=== PATIENT | male | born 1955 | race Hispanic/Latino ===

== ENCOUNTER 2017-07-02 14:30 | Emergency (ER) | payer OTHER ==
[~2017-07-02] VITALS: Ht 167.6 cm; Wt 68.0 kg
[~2017-07-02 14:30] MED LIST: ARICEPT10 M1 PO; DOCUSATE SODIU100 M3 PO; PERCOCET 5-3251 EACH PO; SEROQUEL
--- NOTE | 2017-07-02 14:44 | ED GENERAL ADULT ---
History of Present Illness General Chief Complaint: General Adult Stated Complaint: PER DAUGHTER PT TOOK ALL HIS SEROQUEL Source: patient Exam Limitations: no limitations Vital Signs & Intake/Output Vital Signs & Intake/Output Vital Signs Date Time Temp Pulse Resp B/P B/P Pulse O2 O2 Flow FiO2 Mean Ox Delivery Rate 07/02 1611 96.5 84 16 120/80 100 Room Air 07/02 1434 96.3 93 15 122/79 97 Room Air Room Air Allergies Coded Allergies: No Known Allergies (07/02/17) Reconcile Medications Donepezil HCl (Aricept) 10 MG TABLET 1 TAB PO DAILY ALZHEIMER'S DEMENTIA ( Reported) Quetiapine Fumarate 25 MG TABLET 1 TAB PO QPM MENTAL HEALTH (Reported) Quetiapine Fumarate (Seroquel) 25 MG TABLET 1 TAB PO QPM PRN AGITATION Triage Note: PT TO ED FOR C/C OF POSSIBLE OVERDOSE ON SEROQUEL. PT HAS DEMENTIA AND PER DAUGHTER, THERE WERE OVER 20 PILLS IN BOTTLE AND TODAY THE DAUGHTER FOUND THE BOTTLE EMPTY. PT APPEARS SLIGHTLY DROWSY, BUT ABLE TO ANSWER SOME QUESTIONS. PER DAUGHTER, HE WAS ALSO FOUND WITH BOTTLE OF TYLENOL BUT DAUGHTER DOESN'T THINK PT TOOK THOSE PILLS. PER DAUGHTER, PT TOOK PILLS EITHER LAST NIGHT OR THIS MORNING. Triage Nurses Notes Reviewed? yes Onset: Abrupt Duration: ? SOMETIME LAST NIGHT UNTIL 11 TODAY Severity: mild No Modifying Factors: none Associated Symptoms: ATAXIA, SOME SLURRED SPEECH HPI: This is a 61-year-old male who presents to the ER with his daughter for chief complaint of probable overdose on Seroquel and questionable overdose on Tylenol. He has a history of dementia and is on Aricept, 25 mg of Seroquel at night. Today the daughter who takes care of him came home from work after her police shift commander. She was calling him to the lunch table at 12 noon and noticed he was unsteady on his feet. She asked her son to obtain the medications from her room to give to him and when they couldn't find it they found that the pain and taking the bottle that of the daughter's room into his room. The Aricept bottles on touch but the cervical bladder was empty. There are 25 mg tablets and she thinks it was approximately 20 tablets left. He also had a bottle of her Tylenol and she is unsure how any tablets he took. It is unclear whether he took the medications last night or this morning. 12 noon is the first time she saw him today. Patient is awake alert, slight slurred speech. He was slightly ataxic at home. No axis to alcohol although he is a former EtOH abuser as well as former substance abuser. There is no indication he took these medications on purpose. Past History Travel History Traveled to [place] past 21 day No Medical History Any Pertinent Medical History? see below for history Neurological: Alzheimer's disease EENT: NONE Cardiovascular: NONE Respiratory: NONE Gastrointestinal: NONE Hepatic: NONE Renal: NONE Musculoskeletal: NONE Psychiatric: NONE Endocrine: NONE Blood Disorders: NONE Cancer(s): NONE FUNERAL PRE NEED CONSULTANT/Reproductive: NONE Surgical History Surgical History: colonoscopy done recentlyabout 4-6 months ago which was normal Psychosocial History Who do you live with Daughter What is your primary language Croatian Tobacco Use: Quit >30 days ago ETOH Use: denies use Illicit Drug Use: denies illicit drug use Family History Hx Contributory? No Review of Systems Review of Systems Constitutional: Reports: see HPI (PER DAUGHTER). EENTM: Reports: no symptoms. Respiratory: Denies: short of breath. Cardiovascular: Denies: chest pain. GI: Denies: abdominal pain. Genitourinary: Reports: no symptoms. Musculoskeletal: Reports: no symptoms. Skin: Reports: no symptoms. Neurological/Psychological: Reports: see HPI (SLURRED SPEECH), ataxia. Hematologic/Endocrine: Denies: bruising, bleeding. Immunologic/Allergic: Reports: no symptoms. All Other Systems: Reviewed and Negative Physical Exam Physical Exam General Appearance: well developed/nourished, alert, awake, mild distress Head: atraumatic, normal appearance Eyes: Bilateral: normal appearance, PERRL, EOMI. Ears, Nose, Throat: normal pharynx, normal ENT inspection, hearing grossly normal Neck: normal inspection, supple, full range of motion Respiratory: normal breath sounds, chest non-tender, no respiratory distress Cardiovascular: regular rate/rhythm Peripheral Pulses: 2+ radial (R), 2+ radial (L) Gastrointestinal: normal bowel sounds, soft, non-tender Back: normal inspection, normal range of motion Neurologic/Psych: no motor/sensory deficits, awake, alert, ORIENTED X 1 ( BASELINE), MILD ATAXIC GAIT Skin: intact, normal color, warm/dry Core Measures ACS in differential dx? No CVA/TIA Diagnosis: No Sepsis Present: No Sepsis Focused Exam Completed? No Progress Differential Diagnoses I considered the following diagnoses in my evaluation of the patient: [SEROQUEL OVERDOSE, TYLENOL OVERDOSE, MEDICATION CONFUSION, MEDICATION ERROR] Plan of Care: Orders Procedure Date/time Status Regular Diet 07/03 B Active EKG 07/02 1742 Active Add-on Test (ER Only) 07/02 1607 Active PROTHROMBIN TIME 07/02 1540 Complete EKG 07/02 1533 Active Telemetry/Digital Print Operator 07/02 1453 Active URINE DRUGS OF ABUSE 07/02 1453 Active ACETOMINOPHEN 07/02 1453 Complete SALICYLATE 07/02 1453 Complete ETHANOL 07/02 1453 Complete COMPREHENSIVE METABOLIC PANEL 07/02 1453 Complete CBC WITHOUT DIFFERENTIAL 07/02 145 Complete TYPE & SCREEN (NOT X-MATCH) 07/02 145 Complete Laboratory Tests 07/02/17 1540: Anion Gap 11, Estimated GFR > 60, BUN/Creatinine Ratio 12.5, Glucose 116 H, Calcium 8.6, Total Bilirubin 0.3, AST 16 L, ALT 32, Alkaline Phosphatase 65, Total Protein 6.8, Albumin 4.0, Globulin 2.8, Albumin/Globulin Ratio 1.4, PT 12.1, INR 1.15, CBC w Diff NO MAN DIFF REQ, RBC 4.59 L, MCV 83.1, MCH 27.5, RDW 14.1, MPV 8.0, Gran % 62.1, Lymphocytes % 29.4, Monocytes % 4.8, Eosinophils % 2.8, Basophils % 0.9, Absolute Granulocytes 3.1, Absolute Lymphocytes 1.5, Absolute Monocytes 0.2, Absolute Eosinophils 0.1, Absolute Basophils 0, PUBS MCHC 33.0, Salicylates < 1.0, Acetaminophen < 10.0 L, Serum Alcohol < 10.0 4:07 PM D/W POISON CONTROL. RECOMMEND LABS, ASPIRIN TYLENOL LEVEL, REPEAT EKG AND TO CHECK COAGULATION STUDIES. NO INDICATION FOR 4 HR PATIENT MAY HAVE TAKEN MEDS LAST NIGHT. COAGS ORDERED. PATIETN IS COMFORTABLE, WATCHING TV. DAUGHTER IS BY HIS BEDSIDE. REPEAT EKG QTC INTERVAL NORMAL. DAUGHTER ANXIOUS TO TAKE HIM HOME HE IS STARTING TO AND BECOME MORE AGITATED. ALL MEDS ARE LOCKED AT THIS TIME AND HE WILL NOT BE LEFT ALONE. NO INDICATION THIS WAS AN INTENTIONAL EVENT. Initial ED EKG: normal intervals, NSR Repeat EKG: unchanged (QTC 424) Departure Departure Disposition: HOME OR SELF CARE Condition: Stable Clinical Impression Primary Impression: Overdose Referrals: Sharri Maurice MD (PCP/Family) Additional Instructions: MAKE SURE ALL THE MEDICATIONS AT HOME ARE IN A LOCK BOX FOLLOW UP WITH THE PRIMARY CARE DOCTOR RETURN IMMEDIATELY TO THE ER FOR ANY CHANGING OR WORSENING SYMPTOMS Departure Forms: Customer Survey General Discharge Information Prescriptions: Current Visit Scripts Quetiapine Fumarate (Seroquel) 1 TAB PO QPM PRN AGITATION #30 TAB Critical Care Note Critical Care Note Critical Care Time: non-applicable
[2017-07-02] MEDS ORDERED: QUETIAPINE FUMA25 M1 PO (15:52)
[2017-07-02 15:56] LABS: ABSOLUTE BASOPHIL COUNT 0 /CUMM (0.0-0.2); ABSOLUTE EOSINOPHIL COUNT 0.1 /CUMM (0.0-0.7); ABSOLUTE GRANULOCYTE CT 3.1 /CUMM (1.4-6.5); ABSOLUTE LYMPH COUNT 1.5 /CUMM (1.2-3.4); ABSOLUTE MONOCYTE COUNT 0.2 /CUMM (0.10-0.60); BASOPHIL % 0.9 % (0.0-2.0); EOSINOPHIL % 2.8 % (0-5); GRANULOCYTE % 62.1 % (42.2-75.2); HEMATOCRIT 38.1 % (42-52); MEAN CORPUSCULAR HGB 27.5 PG (27.0-31.0); MEAN CORPUSCULAR VOLUME 83.1 FL (80.0-94.0); PLATELET COUNT 192 /CUMM (130-400); RBC DISTRIBUTION WIDTH 14.1 % (11.5-14.5); RED BLOOD CELL CT 4.59 /CUMM (4.70-6.10); WHITE BLOOD CELL COUNT 5.1 /CUMM (4.8-10.8)
[2017-07-02 16:11] VITALS: BP 120/80
[2017-07-02 16:42] LABS: PT 12.1 SEC (9.4-12.5)
[2017-07-02] MEDS ORDERED: SEROQUEL25 M1 PO (18:28)
== END 2017-07-02 18:42 ==
LOC: ERH 14:30
PROVIDERS: Emergency Medicine
DX: T43.594A Poisoning by other antipsychotics and neuroleptics, undetermined, initial encounter (principal); G30.9 Alzheimer's disease, unspecified; R47.81 Slurred speech
CPT/HCPCS: 80307; 93005; 93010; 96360; 96361; G0480

== ENCOUNTER 2017-12-04 01:14 | Inpatient (IN) | payer OTHER ==
[~2017-12-04] VITALS: Ht 165.1 cm; Wt 65.5 kg
[~2017-12-04 01:14] MED LIST changes: +QUETIAPINE FUMA25 M1 PO; +SEROQUEL25 M1 PO
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
[2017-12-04 03:23] LABS: ABSOLUTE BASOPHIL COUNT 0.1 /CUMM (0.0-0.2); ABSOLUTE EOSINOPHIL COUNT 0 /CUMM (0.0-0.7); ABSOLUTE GRANULOCYTE CT 12.1 /CUMM (1.4-6.5); ABSOLUTE LYMPH COUNT 0.9 /CUMM (1.2-3.4); ABSOLUTE MONOCYTE COUNT 0.8 /CUMM (0.10-0.60); BASOPHIL % 0.5 % (0.0-2.0); EOSINOPHIL % 0 % (0-5); GRANULOCYTE % 86.9 % (42.2-75.2); HEMATOCRIT 39.3 % (42-52); MEAN CORPUSCULAR HGB 29.7 PG (27.0-31.0); MEAN CORPUSCULAR HGB CONC 34.3 G/DL (33.0-37.0); MEAN CORPUSCULAR VOLUME 86.5 FL (80.0-94.0); MEAN PLATELET VOLUME 8.4 FL (7.4-10.4); PLATELET COUNT 127 /CUMM (130-400); RBC DISTRIBUTION WIDTH 14.2 % (11.5-14.5); RED BLOOD CELL CT 4.55 /CUMM (4.70-6.10)
--- NOTE | 2017-12-04 06:18 | RADIOLOGY REPORT ---
EXAMINATION: CHEST 1 VIEW CLINICAL INFORMATION: Dyspnea. Leukocytosis. COMPARISON: None. TECHNIQUE: An AP view of the chest is provided. FINDINGS: The cardiac silhouette is not enlarged. The mediastinal and hilar contours are unremarkable. There are neither pleural effusions nor pneumothoraces. There is retrocardiac airspace disease as well as a medial segment right middle lobe infiltrate. The osseous structures are unremarkable. IMPRESSION: Medial segment right middle lobe infiltrate concerning for pneumonia in the appropriate clinical setting. Recommendation is for a followup chest series to be obtained following treatment and/or resolution of symptoms to assure resolution of this appearance.
--- NOTE | 2017-12-04 06:21 | CT SCAN REPORT ---
EXAMINATION: CT ABDOMEN AND PELVIS WITHOUT CONTRAST CLINICAL INFORMATION: Diarrhea. Dyspnea. COMPARISON: None. TECHNIQUE: Contiguous axial thin section helical images of the abdomen and pelvis were performed without oral or IV contrast. The data set was reformatted in the coronal and sagittal planes and reviewed on an independent workstation. DLP: 265 mGy-cm. FINDINGS: There is a medial segment right middle lobe consolidation. There is patchy lingular retrocardiac and right lower lobe airspace disease. The visualized portions of the heart are unremarkable. The liver is of normal size and attenuation without focal lesions nor intrahepatic biliary ductal dilation. A normal gallbladder is identified. There is no wall thickening or discernible pericholecystic fluid. The spleen, pancreas, adrenal glands are unremarkable. Both kidneys are of normal size and attenuation without hydronephrosis. There is a 2 mm nonobstructive calculus within the lower pole of the right kidney. There is an approximately 3.4 cm cyst within the lower pole of the left kidney There is no abdominal free fluid. There is neither mesenteric nor retroperitoneal lymphadenopathy. Normal unopacified loops of small and large bowel are identified. There is no pelvic free fluid. The urinary bladder is unremarkable. There is neither pelvic nor inguinal lymphadenopathy. Bone windows: Neither sclerotic nor lytic bone lesions are identified. There is mild disc height loss at L4/L5 and L5/S1. IMPRESSION: Medial segment right middle lobe pneumonia. Patchy multifocal airspace disease. Recommendation is for a followup chest series to be obtained following treatment and/or resolution of symptoms to assure resolution of this appearance. No evidence for acute abdominal or pelvic inflammatory or infectious processes. Punctate nonobstructive right lower pole renal calculus.
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
[2017-12-04 14:00] VITALS: BP 120/60
[2017-12-04 22:32] VITALS: BP 124/66
[2017-12-05 07:10] VITALS: BP 120/72
--- NOTE | 2017-12-05 07:28 | PN- Housestaff ---
See Addendum Subjective Follow-up For: CAP Tele-Events Since Last Visit: not on monitor Subjective: Seen and examined. Confused. Does not know why we are giving him IV antibiotics. Patient was explained that he has underlying pneumonia and is being treated for that. He has baseline dementia. T-max 102.2 Review of Systems Constitutional: Reports: see HPI. Objective Last 24 Hrs of Vital Signs/I&O Vital Signs Date Time Temp Pulse Resp B/P B/P Pulse O2 O2 Flow FiO2 Mean Ox Delivery Rate 12/05 0710 100.4 105 26 120/72 94 Room Air 12/04 2248 Room Air 12/04 2232 99.6 106 24 124/66 95 12/04 1856 98.7 12/04 1600 Room Air 12/04 1528 102.2 12/04 1400 102.2 100 20 120/60 95 12/04 0940 99.0 103 16 109/69 Intake & Output 12/05 1600 12/05 0800 12/05 0000 Intake Total 960 840 Output Total Balance 960 840 Intake, IV 600 600 Intake, Oral 360 240 Number 1 Bowel Movements Patient 143 lb Weight Physical Exam General Appearance: Cooperative Cardiovascular: Normal S1, Normal S2 Lungs: decreased airflow crackels R side Abdomen: Soft, No Tenderness Current Medications: Current Medications Sig/Edwin Start time Last Medication Dose Route Stop Time Status Admin Acetaminophen 1,000 MG Q6P PRN 12/04 0900 AC 12/04 IV 1528 Azithromycin 500 MG DAILY 12/05 0900 AC Sodium Chloride 250 ML IV Ceftriaxone Sodium 1,000 MG DAILY 12/05 0900 AC IV Dextrose/Sodium 1,000 ML Q13H 12/04 0915 AC 12/05 Chloride IV 12/05 1114 0152 Donepezil HCl 10 MG AT BEDTIME 12/05 2100 AC PO Heparin Sodium 5,000 UNIT Q8 12/04 1400 AC 12/05 (Porcine) SC 0511 Ketorolac 0 .STK-MED ONE 12/04 0952 DC Tromethamine .ROUTE Quetiapine Fumarate 25 MG QPM 12/04 2100 AC 12/04 PO 2043 Last 24 Hrs of Lab/Cas Results Last 24 Hrs of Labs/Mics: Laboratory Tests 12/05/17614: Anion Gap 12, Estimated GFR > 60, BUN/Creatinine Ratio 10.0, Magnesium 1.7, CBC w Diff Pending, WBC Pending, RBC Pending, Hgb Pending, Hct Pending, MCV Pending, MCH Pending, MCHC Pending, RDW Pending, Plt Count Pending, MPV Pending, Gran % Pending, Lymphocytes % Pending, Monocytes % Pending, Eosinophils % Pending, Basophils % Pending, Absolute Granulocytes Pending, Absolute Lymphocytes Pending , Absolute Monocytes Pending, Absolute Eosinophils Pending, Absolute Basophils Pending Microbiology 12/04 906 LOWER RESP: Respiratory Culture - COLB 12/04 906 LOWER RESP: Gram Stain - COLB Assessment/Plan Assessment: 62-year-old man with past medical history of Alzheimer's dementia brought in by his daughter for evaluation of increasing confusion with unsteady gait, agitation, and increased urination/diarrhea. Vital signs are significant for a heart rate ranging 109-111. Physical exam is significant for an elderly confused man smelling of stool with crackles up to his right mid chest. Lab studies significant for WBC of 14.0 with left shift, K3.6 CT abdomen/pelvis without IV contrast demonstrated no acute intra-abdominal pathology but did comment on a right middle lobe pneumonia with patchy multifocal airspace disease. Chest x-ray demonstrated similar findings. EKG revealed sinus tachycardia. He is currently being treated and evaluated for following conditions #Community-acquired pneumonia(RML) Clinically patient appears to have a community-acquired pneumonia. His worsening altered mental status may be due to a toxic metabolic encephalopathy in the context of infection and known dementia -Monitor fever and WBC curve -Urine strep and Legionella antigens negative -Follow-up blood/urine/stool cultures and sensitivities -Sputum culture pending recipt -Continue ceftriaxone and azithromycin day 2 -O2 supplementation to maintain oxygen saturation above 92 #Diarrhea 2 bowel movements overnight, C. difficile negative, CT scan negative for any acute intra-abdominal pathology -Stool culture #History of Alzheimer's dementia -Continue Aricept/Seroquel -Fall precautions -Patient safety monitor Heart healthy diet/DVT prophylaxis with subcutaneous heparin/Full code -Patient has bed at [facility] where he will ultimately be discharged to Problem List: 1. Diarrhea 2. Pneumonia Pain Ratin Pain Location: na Pain Goal: Pain 4 or less Pain Plan: prn Tomorrow's Labs & Rationales: cbc
[2017-12-05 07:47] LABS: ABSOLUTE BASOPHIL COUNT 0 /CUMM (0.0-0.2); ABSOLUTE EOSINOPHIL COUNT 0 /CUMM (0.0-0.7); ABSOLUTE GRANULOCYTE CT 9.7 /CUMM (1.4-6.5); ABSOLUTE LYMPH COUNT 0.7 /CUMM (1.2-3.4); ABSOLUTE MONOCYTE COUNT 0.7 /CUMM (0.10-0.60); BASOPHIL % 0.1 % (0.0-2.0); EOSINOPHIL % 0.1 % (0-5); HEMATOCRIT 37.1 % (42-52); MEAN CORPUSCULAR HGB 29.5 PG (27.0-31.0); MEAN CORPUSCULAR HGB CONC 33.3 G/DL (33.0-37.0); MEAN CORPUSCULAR VOLUME 88.5 FL (80.0-94.0); MEAN PLATELET VOLUME 9.5 FL (7.4-10.4); PLATELET COUNT 112 /CUMM (130-400); RBC DISTRIBUTION WIDTH 14.1 % (11.5-14.5); RED BLOOD CELL CT 4.19 /CUMM (4.70-6.10); WHITE BLOOD CELL COUNT 11.1 /CUMM (4.8-10.8)
[2017-12-05 09:22] LABS: GRANULOCYTE % 87.2 % (42.2-75.2)
[2017-12-05 14:24] VITALS: BP 112/70
[2017-12-05 22:03] VITALS: BP 140/80
[2017-12-06 05:45] LABS: C.DIFFICILE TOXIN B QL PCR NOT DETECTED (NOT DETECTED)
[2017-12-06 06:48] VITALS: BP 140/80
--- NOTE | 2017-12-06 07:25 | PN- Housestaff ---
Karlos WADSWORTH,Joanna 12/06/17 0725: Subjective Follow-up For: CAP Subjective: Tmax 101 Review of Systems Constitutional: Reports: see HPI. Objective Last 24 Hrs of Vital Signs/I&O Vital Signs Date Time Temp Pulse Resp B/P B/P Pulse O2 O2 Flow FiO2 Mean Ox Delivery Rate 12/06 0755 99.6 12/06 0648 101.1 109 18 140/80 95 Room Air 12/06 0000 Room Air 12/05 2203 99.2 109 20 140/80 95 12/05 1618 Room Air Room Air 12/05 1600 Room Air 12/05 1424 99.0 90 18 112/70 95 Room Air 12/05 0933 99.1 12/05 0834 100.4 Intake & Output 12/06 1600 12/06 0800 12/06 0000 Intake Total 200 550 Output Total Balance 200 550 Intake, Oral 200 550 Number 2 Bowel Movements Patient 144 lb Weight Physical Exam General Appearance: No Acute Distress Cardiovascular: Normal S1, Normal S2 Lungs: Normal Air Movement, mid chest crackels Abdomen: Normal Bowel Sounds, Soft, No Tenderness Neurological: Normal Speech Extremities: No Edema Current Medications: Current Medications Sig/Edwin Start time Last Medication Dose Route Stop Time Status Admin Acetaminophen 1,000 MG Q6P PRN 12/04 0900 AC 12/05 IV 0834 Azithromycin 500 MG DAILY 12/05 0900 AC 12/05 Sodium Chloride 250 ML IV 0834 Ceftriaxone Sodium 1,000 MG DAILY 12/05 0900 AC 12/05 IV 0834 Dextrose/Sodium 1,000 ML Q13H 12/04 0915 DC 12/05 Chloride IV 12/05 1114 0152 Donepezil HCl 10 MG AT BEDTIME 12/05 2100 AC 12/05 PO 211 Heparin Sodium 5,000 UNIT Q8 12/04 1400 AC 12/06 (Porcine) SC 0642 Melatonin 5 MG ONCE ONE 12/06 0215 DC 12/06 PO 12/06 0216 0219 Potassium Chloride 40 MEQ ONCE ONE 12/06 0815 AC PO 12/06 0816 Quetiapine Fumarate 25 MG QPM 12/04 2100 AC 12/05 PO 211 Last 24 Hrs of Lab/Cas Results Last 24 Hrs of Labs/Mics: Laboratory Tests 12/06/17 0644: CBC w Diff Pending, WBC Pending, RBC Pending, Hgb Pending, Hct Pending, MCV Pending, MCH Pending, MCHC Pending, RDW Pending, Plt Count Pending, MPV Pending, Gran % Pending, Lymphocytes % Pending, Monocytes % Pending, Eosinophils % Pending, Basophils % Pending, Absolute Granulocytes Pending, Absolute Lymphocytes Pending, Absolute Monocytes Pending, Absolute Eosinophils Pending, Absolute Basophils Pending Assessment/Plan Assessment: 62-year-old man with past medical history of Alzheimer's dementia brought in by his daughter for evaluation of increasing confusion with unsteady gait, agitation, and increased urination/diarrhea. He is currently being treated and evaluated for following conditions #Community-acquired pneumonia(RML) Clinically patient appears to have a community-acquired pneumonia. His worsening altered mental status may be due to a toxic metabolic encephalopathy in the context of infection and known dementia -Monitor fever and WBC curve -Urine strep and Legionella antigens negative -Follow-up blood/urine/stool cultures and sensitivities -Sputum culture pending -Continue ceftriaxone and azithromycin day 3 -We will obtain a CAT scan to evaluate for possible empyema/ complication of pneumonia in setting of fevers despite antibiotics #Diarrhea C. difficile negative, CT scan negative for any acute intra-abdominal pathology -Stool culture pending -C. difficile PCR is negative -No bowel movements overnight #History of Alzheimer's dementia -Continue Aricept/Seroquel -Fall precautions -Patient safety monitor Heart healthy diet/DVT prophylaxis with subcutaneous heparin/Full code -Patient has bed at [facility] where he will ultimately be discharged to [facility] for Problem List: 1. Diarrhea 2. Pneumonia 3. Dementia Pain Ratin Pain Location: na Pain Goal: Pain 4 or less Pain Plan: prn Tomorrow's Labs & Rationales: Keiko Belcher MD 12/06/17 0949: Attending MD Review Statement Attending Statement Attending MD Statement: examined this patient, discuss w/resident/PA/FLOOR COVERING LAYER, agreed w/resident/PA/FLOOR COVERING LAYER, reviewed EMR data (avail), discussed with nursing, discussed with case mgmt, reviewed images Attending Assessment/Plan: 62-year-old Jamaican-speaking male with dementia who is here with pneumonia. We have him on IV ceftriaxone and azithromycin however he continues to be febrile to 101. He had some diarrhea prompting a diagnostic evaluation for C. difficile however his stool C. difficile toxin and PCR have been negative. Given the persistent temperature he's getting a CT chest today to rule out any complications of pneumonia. Will follow-up as per CT chest.
[2017-12-06 07:53] LABS: ABSOLUTE BASOPHIL COUNT 0 /CUMM (0.0-0.2); ABSOLUTE EOSINOPHIL COUNT 0.1 /CUMM (0.0-0.7); ABSOLUTE GRANULOCYTE CT 7.9 /CUMM (1.4-6.5); ABSOLUTE LYMPH COUNT 0.9 /CUMM (1.2-3.4); ABSOLUTE MONOCYTE COUNT 0.7 /CUMM (0.10-0.60); BASOPHIL % 0.3 % (0.0-2.0); EOSINOPHIL % 0.8 % (0-5); GRANULOCYTE % 82.8 % (42.2-75.2); HEMATOCRIT 35.5 % (42-52); MEAN CORPUSCULAR HGB 29.4 PG (27.0-31.0); MEAN CORPUSCULAR HGB CONC 33.7 G/DL (33.0-37.0); MEAN CORPUSCULAR VOLUME 87.3 FL (80.0-94.0); RBC DISTRIBUTION WIDTH 14.2 % (11.5-14.5); RED BLOOD CELL CT 4.06 /CUMM (4.70-6.10); WHITE BLOOD CELL COUNT 9.6 /CUMM (4.8-10.8)
[2017-12-06 08:40] LABS: PLATELET COUNT 128 /CUMM (130-400)
[2017-12-06 14:44] VITALS: BP 128/104
--- NOTE | 2017-12-06 15:01 | CT SCAN REPORT ---
EXAMINATION: CT CHEST WITHOUT CONTRAST CLINICAL INFORMATION: Spiking fever despite antibiotics. Rule out empyema. CT scan of the abdomen and pelvis from 12/04/2017 had shown findings suspicious for right middle lobe pneumonia and patchy multifocal airspace disease. COMPARISON: CT scan of the abdomen and pelvis dated 12/04/2017. Limited PET CT scan dated 09/13/2011. TECHNIQUE: Multidetector volumetric CT imaging of the chest was obtained noncontrast. Sagittal and coronal reformations were obtained. DLP: 199.27 mGy-cm. FINDINGS: LUNGS: As seen on the recent CT scan of the abdomen, there is dense consolidation seen centrally within the right middle lobe, involving medial and lateral segments, with associated air bronchograms. There are also significant associated patchy groundglass opacities and small nodularity seen extending throughout the right middle lobe as well as involving portions of the right lower lobe and the central aspects of the lingula and left lower lobe. There is a small partially loculated pleural fluid in the right lung base posteriorly without associated pleural thickening appreciated on this noncontrast exam. Findings are most consistent with a multifocal pneumonia. No centrally obstructing mass is appreciated. LYMPHOVASCULAR STRUCTURES: Aortic and heart size normal. There is a small amount of fluid in the superior pericardial recess and a small amount of pericardial fluid, consistent with physiologic findings. There are multiple subcentimeter sized mediastinal lymph nodes seen. No definite hilar or axillary adenopathy. THYROID GLAND: Unremarkable to the extent included. UPPER ABDOMEN: Included portions of the solid organs in the upper abdomen within normal limits. BONES: There is an S-shaped thoracolumbar scoliosis with multilevel mild vertebral spondylosis in the mid and lower thoracic spine. No suspicious focal findings. IMPRESSION: 1. Multifocal lung parenchymal opacities are seen, involving the mid and lower lungs bilaterally with most extensive consolidation seen centrally within the right middle lobe. Associated small simple appearing pleural fluid is seen in the right lower lobe. Findings are suspicious for a multifocal pneumonia. Close clinical correlation is requested. Follow-up CT scan status post treatment is recommended for reassessment. 2. Multiple small mediastinal lymph nodes, all measuring just under 1 cm in size. Findings are likely reactive to the above-described pneumonia.
--- NOTE | 2017-12-06 17:48 | Cons- Infect Disease ---
General Information and HPI Consulting Request Date of Consult: 12/06/17 Requested By: Michael Archuleta MD Reason for Consult: Pneumonia Exam Limitations: dementia History of Present Illness: This is a 62-year-old man with Alzheimer's dementia and a history of remote alcohol and drug abuse admitted on December 04 with a 2 week history of increased confusion over his usual, unsteady gait, decreased p.o. intake, diarrhea and urinary incontinence. On admission he was afebrile. Laboratory data revealed a white blood cell count 14,000, platelets 127,000, BUN/creatinine 17 and 0.9, with normal liver enzymes, urinalysis 3-5 RBC/1-3 WBCs. Chest x-ray revealed a medial segment right middle lobe infiltrate and retrocardiac airspace disease. He was begun on Ceftriaxone and Azithromycin and admitted to the floor. Later in the day he spiked to 102.2 and he he was again febrile, though lower grade, today. He is unable to provide any history secondary to his dementia. 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 Home Smoking Status: Former Smoker ETOH Use: alcoholic Illicit Drug Use: hx of drug abuse Review of Systems Comments Unobtainable Exam & Diagnostic Data Last 24 Hrs of Vital Signs/I&O Vital Signs Date Time Temp Pulse Resp B/P B/P Pulse O2 O2 Flow FiO2 Mean Ox Delivery Rate 12/06 1546 98.9 12/06 1544 99.0 12/06 1444 100.7 106 18 128/104 96 Room Air 12/06 1439 100.6 12/06 1129 99.0 12/06 0755 99.6 12/06 0648 101.1 109 18 140/80 95 Room Air 12/06 0000 Room Air 12/05 2203 99.2 109 20 140/80 95 Intake & Output 12/06 1600 12/06 0800 12/06 0000 Intake Total 200 550 Output Total 400 Balance -400 200 550 Intake, Oral 200 550 Number 1 2 Bowel Movements Output, Urine 400 Patient 144 lb Weight Physical Exam Other Physical Findings: He is awake and alert, disoriented, but in no acute distress. T-max 101.1. Skin reveals no rash. HEENT exam is negative. Neck is supple with no adenopathy. Lungs are clear. Heart regular rhythm with no murmur. Abdomen is soft, nontender with positive bowel sounds. Back no CVA tenderness. Extremities no cyanosis, clubbing or edema. Neuro is without focality. Last 24 Hours of Lab Results: Laboratory Tests 12/06 0644 Hematology CBC w Diff NO MAN DIFF REQ WBC (4.8 - 10.8 /CUMM) 9.6 RBC (4.70 - 6.10 /CUMM) 4.06 L Hgb (14.0 - 18.0 G/DL) 11.9 L Hct (42 - 52 %) 35.5 L MCV (80.0 - 94.0 FL) 87.3 MCH (27.0 - 31.0 PG) 29.4 MCHC (33.0 - 37.0 G/DL) 33.7 RDW (11.5 - 14.5 %) 14.2 Plt Count (130 - 400 /CUMM) 128 L MPV (7.4 - 10.4 FL) 9.0 Gran % (42.2 - 75.2 %) 82.8 H Lymphocytes % (20.5 - 51.1 %) 9.3 L Monocytes % (1.7 - 9.3 %) 6.8 Eosinophils % (0 - 5 %) 0.8 Basophils % (0.0 - 2.0 %) 0.3 Absolute Granulocytes (1.4 - 6.5 /CUMM) 7.9 H Absolute Lymphocytes (1.2 - 3.4 /CUMM) 0.9 L Absolute Monocytes (0.10 - 0.60 /CUMM) 0.7 H Absolute Eosinophils (0.0 - 0.7 /CUMM) 0.1 Absolute Basophils (0.0 - 0.2 /CUMM) 0 Last 24 Hours of Cas Results: Blood cultures 2 December 04 negative Urine culture December 04 negative Urine strep pneumo antigen and Legionella antigen December 04 negative Stool C. difficile December 04 toxin and PCR negative Stool culture December 04 mixed salma Diagnostic Data Recent Imaging Findings: Chest x-ray December 04 reveals a medial segment right middle lobe infiltrate and retrocardiac airspace disease CT of the abdomen and pelvis December 04 reveals a medial segment right middle lobe pneumonia with patchy lingular retrocardiac and right lower lobe airspace disease CT of the chest December 06 reveals multifocal lung parenchymal opacities involving the mid and lower lungs bilaterally with the most extensive consolidation within the right middle lobe, with associated small partially loculated pleural fluid in the right lower lobe Assessment/Plan Assessment/Plan Impression: This is a 62-year-old man with Alzheimer's dementia, with a history of remote alcohol and drug abuse, admitted on December 04 with a 2 week history of increased confusion over his usual confusion, unsteady gait, decreased p.o. intake, diarrhea and urinary incontinence, found initially to be afebrile with a leukocytosis and mild thrombocytopenia, with a chest x-ray and CT scan of the chest revealing multilobar pneumonia and with the development of fevers, which have persisted despite antibiotics. His presentation is suggestive of an atypical pneumonia, with no report of cough , shortness of breath or chest pain and with more extrapulmonary manifestations, including confusion and diarrhea. Having said this, extrapulmonary manifestations are felt to be as common with Legionella as with severe pneumococcal pneumonia, and they are felt to reflect the severity of the pneumonia rather than the etiology. Additionally his urine Legionella antigen is negative, though this test has a limited sensitivity. Aspiration pneumonia is another possibility, though there is no report of swallowing difficulties. He appears to be improving, with lower grade fevers and with his white blood cell count now normal; therefore feel that his current antibiotic regimen can be continued. The significance of the small loculated effusion is unclear and, if he continues to improve, do not feel this needs to be pursued. Suggestion: 1. Further workup, including consideration of a thoracentesis if ample fluid is present, if his fevers persist 2. Consider repeat urine Legionella antigen in the a.m. 3. Continue Ceftriaxone and Azithromycin Consult Acknowledgment - Thank you for your consult request.
[2017-12-06 22:31] VITALS: BP 120/82
[2017-12-07 06:57] VITALS: BP 122/80
--- NOTE | 2017-12-07 07:00 | PN- Housestaff ---
Karlos WADSWORTH,Joanna 12/07/17 0700: Subjective Follow-up For: Community-acquired pneumonia Phlebitis Subjective: Seen and examined. Resting comfortably. Thai-speaking primarily. But understands Korean. Does not offer any complaints no respiratory symptoms. Review of Systems Constitutional: Reports: see HPI. Objective Last 24 Hrs of Vital Signs/I&O Vital Signs Date Time Temp Pulse Resp B/P B/P Pulse O2 O2 Flow FiO2 Mean Ox Delivery Rate 12/07 1428 100.0 103 18 106/70 96 Room Air 12/07 1400 100.0 12/07 1300 100.4 12/07 1135 100.5 12/07 1003 100.8 12/07 1001 100.8 12/07 0657 99.0 100 18 122/80 94 Room Air 12/06 2231 98.6 98 18 120/82 93 Room Air 12/06 2121 Room Air 12/06 1546 98.9 12/06 1544 99.0 Intake & Output 12/07 1600 12/07 0800 12/07 0000 Intake Total 720 720 Output Total 100 Balance -100 720 720 Intake, Oral 720 720 Number 1 3 3 Bowel Movements Output, Urine 100 Patient 143 lb 142 lb Weight Weight Bed scale Measurement Method Physical Exam General Appearance: Alert, Oriented X3 Cardiovascular: Normal S1, Normal S2 Lungs: Clear to Auscultation Abdomen: Soft Other Physical Findings: Extremities slight erythema and tenderness over the left forearm IV site Current Medications: Current Medications Sig/Edwin Start time Last Medication Dose Route Stop Time Status Admin Acetaminophen 650 MG .STK-MED ONE 12/07 1016 DC PO 12/07 1017 Acetaminophen 650 MG ONCE ONE 12/07 1000 DC 12/07 PO 12/07 1001 1003 Acetaminophen 1,000 MG Q8P PRN 12/07 1000 AC IV Acetaminophen 1,000 MG Q6P PRN 12/04 09 DC 12/06 IV 1439 Azithromycin 500 MG DAILY 12/07 1035 AC PO Azithromycin 500 MG DAILY 12/05 09 DC 12/07 Sodium Chloride 250 ML IV 0754 Ceftriaxone Sodium 1,000 MG DAILY 12/05 0900 DC 12/07 IV 0758 Donepezil HCl 10 MG AT BEDTIME 12/05 2100 AC 12/06 PO 2036 Heparin Sodium 5,000 UNIT Q8 12/04 1400 AC 12/07 (Porcine) SC 0604 Melatonin 5 MG .STK-MED ONE 12/07 1016 DC PO 12/07 1017 Melatonin 5 MG ONCE ONE 12/07 0245 DC 12/07 PO 12/07 0246 0243 Melatonin 5 MG .STK-MED ONE 12/06 1625 DC PO 12/06 1626 Quetiapine Fumarate 25 MG QPM 12/04 2100 AC 12/06 PO 2035 Last 24 Hrs of Lab/Cas Results Last 24 Hrs of Labs/Mics: Laboratory Tests 12/07/17 0619: CBC w Diff NO MAN DIFF REQ, RBC 3.85 L, MCV 87.9, MCH 29.6, MCHC 33.6, RDW 14.1 , MPV 9.5, Gran % 76.4 H, Lymphocytes % 12.6 L, Monocytes % 9.2, Eosinophils % 1.6, Basophils % 0.2, Absolute Granulocytes 5.8, Absolute Lymphocytes 1.0 L, Absolute Monocytes 0.7 H, Absolute Eosinophils 0.1, Absolute Basophils 0 Microbiology 12/07 1018 URINE ROUT: Legionella Antigen - COMP 12/07 1018 URINE ROUT: Streptococcus pneumoniae Antigen (M - COMP Assessment/Plan Assessment: 62-year-old man with past medical history of Alzheimer's dementia brought in by his daughter for evaluation of increasing confusion with unsteady gait, agitation, and increased urination/diarrhea. He is currently being treated and evaluated for following conditions #Community-acquired pneumonia(RML) Clinically patient appears to have a community-acquired pneumonia. His worsening altered mental status may be due to a toxic metabolic encephalopathy in the context of infection and known dementia. Since patient was spiking low-grade fevers we got ID on board and did a CAT scan the CAT scan was suggestive of small partially loculated effusion. -Monitor fever and WBC curve -Urine strep and Legionella antigens negative x2 -Follow-up blood/urine/stool cultures and sensitivities -Sputum culture pending -We are going to switch to oral azithromycin. #Phlebitis? Is spiking low-grade fevers and T-max of 100.8 there was concern of developing phlebitis ID on board. We have removed IV line and is the patient is currently on oral antibiotics #Diarrhea resolved C. difficile negative, CT scan negative for any acute intra-abdominal pathology -Stool culture pending -C. difficile PCR is negative -No bowel movements overnight #History of Alzheimer's dementia -Continue Aricept/Seroquel -Fall precautions -Patient safety monitor -Outpatient workup and close neurological monitoring -Also benefit from geriatric follow-up Heart healthy diet/DVT prophylaxis with subcutaneous heparin/Full code -Patient has bed at [facility] where he will ultimately be discharged to [facility] Problem List: 1. Pneumonia 2. Dementia Pain Ratin Pain Location: na Pain Goal: Pain 4 or less Pain Plan: prn Tomorrow's Labs & Rationales: cbc Keiko Valdez MD 12/07/17 1051: Attending MD Review Statement Attending Statement Attending MD Statement: examined this patient, discuss w/resident/PA/DIAMOND BROKER, agreed w/resident/PA/DIAMOND BROKER, discussed with family, reviewed EMR data (avail), discussed with nursing, discussed with case mgmt, reviewed images Attending Assessment/Plan: Appreciate ID consult. CT chest done yesterday shows multifocal pneumonia with a very small effusion. We spoke to Dr. Marie at length and we feel that given that his white count is improving and clinically he appears better, at this point we can switch him to oral antibiotics for a pneumonia- this is likely an atypical versus a pneumococcal pneumonia. He does have this low-grade temp of 100.8 and the worry is that he may be developing a phlebitis and we will remove the IV line today. He has a long-standing history of dementia and will need outpatient close neurological and geriatric follow-up.
[2017-12-07 08:22] LABS: ABSOLUTE BASOPHIL COUNT 0 /CUMM (0.0-0.2); ABSOLUTE EOSINOPHIL COUNT 0.1 /CUMM (0.0-0.7); ABSOLUTE GRANULOCYTE CT 5.8 /CUMM (1.4-6.5); ABSOLUTE MONOCYTE COUNT 0.7 /CUMM (0.10-0.60); BASOPHIL % 0.2 % (0.0-2.0); EOSINOPHIL % 1.6 % (0-5); GRANULOCYTE % 76.4 % (42.2-75.2); HEMATOCRIT 33.8 % (42-52); MEAN CORPUSCULAR HGB 29.6 PG (27.0-31.0); MEAN CORPUSCULAR HGB CONC 33.6 G/DL (33.0-37.0); MEAN CORPUSCULAR VOLUME 87.9 FL (80.0-94.0); MEAN PLATELET VOLUME 9.5 FL (7.4-10.4); PLATELET COUNT 139 /CUMM (130-400); RBC DISTRIBUTION WIDTH 14.1 % (11.5-14.5); RED BLOOD CELL CT 3.85 /CUMM (4.70-6.10); WHITE BLOOD CELL COUNT 7.6 /CUMM (4.8-10.8)
--- NOTE | 2017-12-07 11:58 | PN- Infect Dx ---
Subjective Subjective: T-max 100.8. He does not offer any complaints Objective Last 24 Hrs of Vital Signs/I&O Vital Signs Date Time Temp Pulse Resp B/P B/P Pulse O2 O2 Flow FiO2 Mean Ox Delivery Rate 12/07 1135 100.5 12/07 1003 100.8 12/07 1001 100.8 12/07 0657 99.0 100 18 122/80 94 Room Air 12/06 2231 98.6 98 18 120/82 93 Room Air 12/06 2121 Room Air 12/06 1546 98.9 12/06 1544 99.0 12/06 1444 100.7 106 18 128/104 96 Room Air 12/06 1439 100.6 Intake & Output 12/07 1600 12/07 0800 12/07 0000 Intake Total 720 720 Output Total Balance 720 720 Intake, Oral 720 720 Number 3 3 Bowel Movements Patient 143 lb 142 lb Weight Weight Bed scale Measurement Method Physical Exam Other Physical Findings: He appears more awake and alert in no acute distress Lungs are clear Heart regular rhythm with no murmur Abdomen is soft, nontender with positive bowel sounds Back no CVA tenderness Extremities slight erythema and tenderness over the left forearm IV site Results Last 24 Hours of Lab Results: Laboratory Tests 12/07 618 Hematology CBC w Diff NO MAN DIFF REQ WBC (4.8 - 10.8 /CUMM) 7.6 RBC (4.70 - 6.10 /CUMM) 3.85 L Hgb (14.0 - 18.0 G/DL) 11.4 L Hct (42 - 52 %) 33.8 L MCV (80.0 - 94.0 FL) 87.9 MCH (27.0 - 31.0 PG) 29.6 MCHC (33.0 - 37.0 G/DL) 33.6 RDW (11.5 - 14.5 %) 14.1 Plt Count (130 - 400 /CUMM) 139 MPV (7.4 - 10.4 FL) 9.5 Gran % (42.2 - 75.2 %) 76.4 H Lymphocytes % (20.5 - 51.1 %) 12.6 L Monocytes % (1.7 - 9.3 %) 9.2 Eosinophils % (0 - 5 %) 1.6 Basophils % (0.0 - 2.0 %) 0.2 Absolute Granulocytes (1.4 - 6.5 /CUMM) 5.8 Absolute Lymphocytes (1.2 - 3.4 /CUMM) 1.0 L Absolute Monocytes (0.10 - 0.60 /CUMM) 0.7 H Absolute Eosinophils (0.0 - 0.7 /CUMM) 0.1 Absolute Basophils (0.0 - 0.2 /CUMM) 0 Last 24 Hours of Cas Results: Blood cultures 2 December 04 negative Repeat urine Legionella antigen December 07 pending Assessment/Plan ID Impression: Clinically improved, with temperatures lower grade and white blood cell count normal, on Ceftriaxone and Azithromycin, Day 4 of treatment for multilobar pneumonia, possibly atypical in origin given the lack of pulmonary symptoms. His fever this morning may be secondary to a phlebitis at the IV site, particularly given his overall improvement. His daughter does report recent ataxia and worsening confusion, raising concern for a new TILLER MAN process. Suggestion: 1. Consider CT of the head/Neuro evaluation if his mental status does not return to his baseline 2. Follow-up repeat urine for Legionella antigen 3. Will need to consider further evaluation of the small right pleural effusion if his fevers persist 4. Discontinue Ceftriaxone 5. Change Azithromycin to 500 mg p.o. every 24 hours
[2017-12-07 14:28] VITALS: BP 106/70
[2017-12-07 22:35] VITALS: BP 116/72
--- NOTE | 2017-12-08 03:37 | Sepsis Event Note ---
Sepsis Event Note Severe Sepsis Severe Sepsis Present: No Septic Shock Septic Shock Present: No Event Note Event Note: Situation Patient spiking recurrent temperatures Background 62 year old man admitted from pneumonia thought to be atypical in origin treated with azithromycin. Assessment Patient meets SIRS/Sepsis criteria with temperature of 102.5, tachycardia, tachypnea in the context of multilobar pneumonia. Recommendations -Blood cultures x2 -Stat CBC, lactic acid; trend if abnormal -Recheck urine legionella antigen, urinalysis, sputum culture -Resend C. diff toxin if diarrhea reoccurs -Normal Saline 20cc / kg bolus (1280 cc) -Consider broadening antibiotic coverage if hemodynamically unstable -Consider further evaluation of pleural effusion for empyema or DIRECTOR PLANS etiology Sepsis Focused Exam Sepsis Cardiac Exam: Tachycardia Sepsis Resp Exam: Ronchi Sepsis Cap Refill Exam: <2 Sec Sepsis Peripheral Pulse Exam: Normal Sepsis Peripheral Pulse Location: Dorsalis Pedis Sepsis Skin Exam (color): Normal for Ethnicity Skin Temp/Moisture Exam: Warm/Dry
[2017-12-08 04:17] LABS: ABSOLUTE BASOPHIL COUNT 0 /CUMM (0.0-0.2); ABSOLUTE EOSINOPHIL COUNT 0.2 /CUMM (0.0-0.7); ABSOLUTE GRANULOCYTE CT 4.3 /CUMM (1.4-6.5); ABSOLUTE LYMPH COUNT 0.8 /CUMM (1.2-3.4); ABSOLUTE MONOCYTE COUNT 0.6 /CUMM (0.10-0.60); BASOPHIL % 0.4 % (0.0-2.0); EOSINOPHIL % 3.5 % (0-5); GRANULOCYTE % 72.4 % (42.2-75.2); MEAN CORPUSCULAR HGB 29.5 PG (27.0-31.0); MEAN CORPUSCULAR HGB CONC 33.5 G/DL (33.0-37.0); MEAN PLATELET VOLUME 8.1 FL (7.4-10.4); PLATELET COUNT 167 /CUMM (130-400); RBC DISTRIBUTION WIDTH 14.2 % (11.5-14.5); RED BLOOD CELL CT 3.86 /CUMM (4.70-6.10)
[2017-12-08 07:13] VITALS: BP 98/70
--- NOTE | 2017-12-08 07:29 | PN- Housestaff ---
Karlos WADSWORTH,Joanna 12/08/17 0728: Subjective Follow-up For: Community-acquired pneumonia? Liver mass? Subjective: Seen and examined. Daughter at the bedside ex- at the bedside does not offer any complaints. Daughter reported about 7 bowel movements yesterday. Review of Systems Constitutional: Reports: see HPI. Objective Last 24 Hrs of Vital Signs/I&O Vital Signs Date Time Temp Pulse Resp B/P B/P Pulse O2 O2 Flow FiO2 Mean Ox Delivery Rate 12/08 1300 99.7 12/08 1233 99.7 108 19 98/62 12/08 1120 101.0 12/08 1110 101.0 12/08 0713 99.6 105 22 98/70 94 Room Air 12/08 0402 99.6 12/08 0319 102.5 12/08 0000 Room Air 12/07 2235 99.6 102 18 116/72 93 Room Air 12/07 2019 99.3 12/07 1822 101.3 12/07 1600 Room Air 12/07 1428 100.0 103 18 106/70 96 Room Air 12/07 1400 100.0 Intake & Output 12/08 1600 12/08 0800 12/08 0000 Intake Total 1120 120 Output Total Balance 1120 120 Intake, IV 1000 Intake, Oral 120 120 Patient 142 lb Weight Weight Bed scale Measurement Method Physical Exam General Appearance: Alert, Oriented X3 Cardiovascular: Normal S1, Normal S2 Lungs: Clear to Auscultation, Normal Air Movement Abdomen: Normal Bowel Sounds, Soft Neurological: Normal Speech Extremities: No Edema Current Medications: Current Medications Sig/Edwin Start time Last Medication Dose Route Stop Time Status Admin Acetaminophen 1,000 MG .STK-MED ONE 12/08 0316 DC IV 12/08 0317 Acetaminophen 1,000 MG Q8P PRN 12/07 1000 AC 12/08 IV 1120 Azithromycin 500 MG DAILY 12/07 1035 DC 12/08 PO 0838 Donepezil HCl 10 MG AT BEDTIME 12/05 2100 AC 12/07 PO 2021 Heparin Sodium 5,000 UNIT Q8 12/04 1400 AC 12/08 (Porcine) SC 0516 Quetiapine Fumarate 25 MG QPM 12/04 2100 AC 12/07 PO 2021 Sodium Chloride 1,000 ML Q10H 12/08 1300 DC IV Sodium Chloride 1,000 ML Q10H 12/08 1300 CAN IV 12/08 8809 Sodium Chloride 1,000 ML BOLUS ONE 12/08 0345 DC 12/08 IV 12/08 0444 0358 Last 24 Hrs of Lab/Cas Results Last 24 Hrs of Labs/Mics: Laboratory Tests 12/08/17 0600: CBC w Diff Cancelled, WBC Cancelled, RBC Cancelled, Hgb Cancelled, Hct Cancelled , MCV Cancelled, MCH Cancelled, MCHC Cancelled, RDW Cancelled, Plt Count Cancelled, MPV Cancelled 12/08/17 0500: Urinalysis LIGHT H, Urine Color YEL, Urine Clarity CLEAR, Urine pH 6.5, Ur Specific [place] <= 1.005, Urine Protein NEG, Urine Ketones NEG, Urine Nitrite NEG, Urine Bilirubin NEG, Urine Urobilinogen 0.2, Ur Leukocyte Esterase NEG, Ur Microscopic SEDIMENT EXAMINED, Urine RBC 1-3, Urine WBC RARE, Urine Hemoglobin TRACE-INTACT H, Urine Glucose NEG 12/08/17 0345: Lactic Acid 0.6 L, CBC w Diff NO MAN DIFF REQ, RBC 3.86 L, MCV 88.0, MCH 29.5, MCHC 33.5, RDW 14.2, MPV 8.1, Gran % 72.4, Lymphocytes % 12.9 L, Monocytes % 10.8 H, Eosinophils % 3.5, Basophils % 0.4, Absolute Granulocytes 4.3, Absolute Lymphocytes 0.8 L, Absolute Monocytes 0.6, Absolute Eosinophils 0.2, Absolute Basophils 0 Microbiology 12/08 1308 STOOL: Clostridium difficile Toxin A & B - COLB 12/08 0500 URINE ROUT: Legionella Antigen - COMP 12/08 0400 LOWER RESP: Respiratory Culture - RES 12/08 040 LOWER RESP: Gram Stain - RES 12/08 0350 BLOOD: Blood Culture - RECD 12/08 0345 BLOOD: Blood Culture - RECD Assessment/Plan Assessment: The patient is 62-year-old gentleman with past medical history of dementia who was initially being treated for community-acquired pneumonia with IV ceftriaxone and azithromycin. He is white count responded and is started to trend down but patient continued to spike fevers with this is when he decided to proceed with a CT scan to rule out any complication of pneumonia like empyema or parapneumonic effusion. There was also possibility of phlebitis hence the IV line was removed. CT scan was positive for multi focal pneumonia and there was a small partially loculated fluid in the right lung base. Reached out to interventional radiology who thought that the fluid is to list to be tapped at this point. Dr. Diallo infectious diseases asked the radiologist to go over the CT scan one more time. I was approached by the radiologist that there is a possibility of 2 liver masses which were not previously reported. Correlation with MRI is required. We have scheduled the patient for MRI. The daughter has been informed. At this point it is possible that live those liver masses are malignant lesions and the fever he is getting is tumor fever, despite receiving antibiotics. Liver abscesses is a possibility though unlikely given his hemodynamically stable picture. Patient continues to have diarrhea at this point we are going to repeat C. difficile since he received IV ceftriaxone. Drug fever is also possible though patient does not have any eosinophilia hence is unlikely. We are going to follow off antibiotics and await MRI results. Problem List: 1. Pneumonia 2. Dementia Pain Ratin Pain Location: na Pain Goal: Pain 4 or less Pain Plan: prn Tomorrow's Labs & Rationales: cbc Keiko Valdez MD 12/08/17 1024: Attending MD Review Statement Attending Statement Attending MD Statement: examined this patient, discuss w/resident/PA/MUD CLEANER OPERATOR, agreed w/resident/PA/MUD CLEANER OPERATOR, discussed with family, reviewed EMR data (avail), discussed with nursing, discussed with case mgmt, reviewed images Attending Assessment/Plan: 62-year-old male primarily Dutch-speaking, significant Alzheimer's dementia- his daughter works as a emissions testing and repair technician here. He was admitted with fever and diarrhea. He was found to have a multifocal pneumonia confirmed on CT chest and was treated with IV ceftriaxone and azithromycin. Because of persistent fevers ID was consulted. He was doing well clinically and his white count was coming down and we had switched him to by mouth azithromycin. C. difficile toxin and PCR was sent which was negative. He still has up to 6-7 bowel movements a day which are a little more formed per the daughter. Now the issue is that there is a possibility of a mass in the liver. Dr. Marie had the radiologist look at the CT that was done on December 04 on admission and Jony Hinkle MD called the finance accounting internship about this mass lesion in the liver and recommended an MRI to evaluate this better. The patient is having ongoing fevers despite being on Azithro and will defer to Dr. Marie regarding choice of antibiotics. We are going to get an MRI with gadolinium today to better evaluate this mass lesion. Patient has dementia with a teacher nursery school and when he is stable, the daughter has already secured a bed at the dementia unit in [facility] for him.
--- NOTE | 2017-12-08 11:47 | PN- Infect Dx ---
Subjective Subjective: T-max 102.5. He has had several watery bowel movements but offers no complaints. Objective Last 24 Hrs of Vital Signs/I&O Vital Signs Date Time Temp Pulse Resp B/P B/P Pulse O2 O2 Flow FiO2 Mean Ox Delivery Rate 12/08 1120 101.0 12/08 1110 101.0 12/08 0713 99.6 105 22 98/70 94 Room Air 12/08 0402 99.6 12/08 0319 102.5 12/08 0000 Room Air 12/07 2235 99.6 102 18 116/72 93 Room Air 12/07 2019 99.3 12/07 1822 101.3 12/07 1600 Room Air 12/07 1428 100.0 103 18 106/70 96 Room Air 12/07 1400 100.0 12/07 1300 100.4 12/07 1135 100.5 Intake & Output 12/08 1600 12/08 0800 12/08 0000 Intake Total 1120 120 Output Total Balance 1120 120 Intake, IV 1000 Intake, Oral 120 120 Patient 142 lb Weight Weight Bed scale Measurement Method Physical Exam Other Physical Findings: He appears more awake and alert in no acute distress Skin no rash Lungs are clear Heart regular rhythm with no murmur Abdomen is soft, nontender with positive bowel sounds Back no CVA tenderness Extremities no cyanosis, clubbing or edema; no evidence of phlebitis in the left upper extremity at the recent IV site Results Last 24 Hours of Lab Results: Laboratory Tests 12/08 12/08 0600 0500 Hematology CBC w Diff Cancelled WBC Cancelled RBC Cancelled Hgb Cancelled Hct Cancelled MCV Cancelled MCH Cancelled MCHC Cancelled RDW Cancelled Plt Count Cancelled MPV Cancelled Urines Urinalysis LIGHT H Urine Color (YEL,AMB,STR) YEL Urine Clarity (CLEAR) CLEAR Urine pH (5.0 - 8.0) 6.5 Ur Specific [place] (1.001 - 1.035) <= 1.005 Urine Protein (NEG,<30 MG/DL) NEG Urine Ketones (NEG) NEG Urine Nitrite (NEG) NEG Urine Bilirubin (NEG) NEG Urine Urobilinogen (0.1 - 1.0 EU/dl) 0.2 Ur Leukocyte Esterase (NEG) NEG Ur Microscopic SEDIMENT EXAMINED Urine RBC (0 - 5 /HPF) 1-3 Urine WBC (0 - 2 /HPF) RARE Urine Hemoglobin (NEG) TRACE-INTACT H Urine Glucose (N MG/DL) NEG 12/08 0345 Chemistry Lactic Acid (0.7 - 2.1 mmol/L) 0.6 L Hematology CBC w Diff NO MAN DIFF REQ WBC (4.8 - 10.8 /CUMM) 6.0 RBC (4.70 - 6.10 /CUMM) 3.86 L Hgb (14.0 - 18.0 G/DL) 11.4 L Hct (42 - 52 %) 34.0 L MCV (80.0 - 94.0 FL) 88.0 MCH (27.0 - 31.0 PG) 29.5 MCHC (33.0 - 37.0 G/DL) 33.5 RDW (11.5 - 14.5 %) 14.2 Plt Count (130 - 400 /CUMM) 167 MPV (7.4 - 10.4 FL) 8.1 Gran % (42.2 - 75.2 %) 72.4 Lymphocytes % (20.5 - 51.1 %) 12.9 L Monocytes % (1.7 - 9.3 %) 10.8 H Eosinophils % (0 - 5 %) 3.5 Basophils % (0.0 - 2.0 %) 0.4 Absolute Granulocytes (1.4 - 6.5 /CUMM) 4.3 Absolute Lymphocytes (1.2 - 3.4 /CUMM) 0.8 L Absolute Monocytes (0.10 - 0.60 /CUMM) 0.6 Absolute Eosinophils (0.0 - 0.7 /CUMM) 0.2 Absolute Basophils (0.0 - 0.2 /CUMM) 0 Last 24 Hours of Cas Results: Urine strep pneumo antigen and Legionella antigen December 07 negative Blood cultures December 04 negative Blood cultures December 08 pending Sputum culture December 08 pending, with gram stain revealing many white blood cells and few gram-positive cocci Urine Legionella antigen December 08 negative Recent Imaging Studies: CT of the chest, abdomen and pelvis reviewed with Radiology yesterday reveals a large liver mass; the right pleural effusion is not felt amenable to aspiration. Assessment/Plan ID Impression: Recurrent fever despite now 5 days of antibiotics for a multilobar pneumonia, felt to be possibly atypical in origin, with a paucity of pulmonary symptoms. His white blood cell count has normalized on antibiotics, suggesting a response to treatment, and his fever may be noninfectious in origin. The CT scans were reviewed yesterday with Radiology, with a liver mass noted on the CT of the abdomen that was not commented on in the report. This could represent a hepatoma, in which case the fever could be "tumor fever", or, possibly, a liver abscess, though the appearance is not suggestive of this. It is not clear if or how this is related to the consolidation in his lung and, at this point, the role of antibiotics is unclear. The pleural effusion is not felt to be amenable to aspiration. His diarrhea is apparently a chronic problem, of unclear etiology, with his C. difficile toxin and PCR negative. Suggestion: 1. Await MRI of the abdomen, scheduled for later today 2. Repeat stool for C. difficile 3. Discontinue Azithromycin and follow off antibiotics pending above
[2017-12-08 12:33] VITALS: BP 98/62
--- NOTE | 2017-12-08 15:48 | MRI REPORT ---
EXAMINATION: MR ABDOMEN WITHOUT AND WITH CONTRAST CLINICAL INFORMATION: Solid liver lesions on CT scan reported. Assess for malignancy. COMPARISON: CT scan of the chest dated 12/06/2017. CT scan of the abdomen and pelvis dated 12/04/2017. TECHNIQUE: An MRI scan of the abdomen was performed using multiple imaging sequences and imaging planes. As per the MRCP protocol, heavily T2-weighted 3-D high-resolution MRCP sequences were obtained in the coronal plane along with thin and thick slab coronal images and coronal MIP reconstructions on the technologist workstation under concurrent physician supervision. Gadavist 7 mL intravenous was given and postcontrast enhanced dynamic evaluation was performed. FINDINGS: The evaluation is significantly limited due to patient's inability to suspend respiration. Evaluation was performed with the patient free breathing, resulting in extensive motion artifact. LUNG BASES: There is extensive lung consolidation and cystic change seen in the right middle lobe, incompletely included and corresponding to the dense consolidation seen on CT scan. No pleural effusion is seen. LIVER, GALLBLADDER, BILIARY TREE: Liver normal size and signal. There are 2 adjacent T2 bright masses in the right lobe of the liver, measuring 1.7 x 1.4 cm in segment 7 and 3.9 x 2.8 cm in segment 6/7 (series 7, image 5). The larger of these 2 lesions demonstrates peripheral nodular discontinuous rim enhancement with progressive filling in of contrast matching blood pool, consistent with a large hemangioma. The smaller lesion demonstrates slow progressive peripheral rim enhancement, also consistent with a hemangioma. No other focal liver mass appreciated. No intrahepatic or extrahepatic ductal dilatation noted. The MRCP sequences are nondiagnostic due to extensive motion artifact. Hepatic and portal veins patent. The gallbladder is decompressed and suboptimally assessed, but grossly unremarkable. PANCREAS: Normal. No ductal dilatation, mass, or surrounding stranding. SPLEEN: Normal size and appearance. Splenic vein patent. ADRENAL GLANDS AND KIDNEYS: Adrenal glands normal. Kidneys bilaterally symmetric in size and function. No hydronephrosis or perinephric stranding. There is a 0.6 cm T2 bright nonenhancing cyst in the upper pole of the right kidney and 2 adjacent partially exophytic 2.9 x 3.2 cm and 1.3 x 1.5 cm cysts in the lower pole of the left kidney. BOWEL LOOPS: Grossly within normal limits. LYMPHOVASCULAR STRUCTURES: Abdominal aorta normal in caliber. No periaortic collections. No abdominal adenopathy or free fluid collection. BONES: There is moderate degenerative disc disease in the lower thoracic spine. Mild S-shaped thoracolumbar scoliosis is seen. There is likely a small vertebral hemangioma in the posterior right side of the T10 vertebral body. IMPRESSION: 1. Significantly limited study due to breathing motion artifact. However, the 2 masses seen in the right lobe of the liver have imaging characteristics consistent with hemangiomas. 2. Bilateral renal cysts. 3. Moderate degenerative disc disease in the lower thoracic spine and small vertebral hemangioma in the T10 vertebral body.
[2017-12-08 16:49] VITALS: BP 140/82
--- NOTE | 2017-12-08 20:08 | Event Note ---
Event Note Event Note: I spoke to the patient's daughter Rubi over the phone regarding the MRI results. I told her about the liver hemangioma and vertebral hemangioma, which are benign lesions and needs follow-up in the future. She expressed her concern about her father spiking fever. She would like to go conservatively regarding his liver and vertebral hemangioma. She will talk to Dr. Mamta bernal, tomorrow regarding her concern about fever and the MRI results.
[2017-12-08 22:22] VITALS: BP 124/76
[2017-12-09 06:54] VITALS: BP 116/58
[2017-12-09 07:01] VITALS: BP 114/64
[2017-12-09 07:44] LABS: ABSOLUTE BASOPHIL COUNT 0 /CUMM (0.0-0.2); ABSOLUTE EOSINOPHIL COUNT 0.3 /CUMM (0.0-0.7); ABSOLUTE GRANULOCYTE CT 5.1 /CUMM (1.4-6.5); ABSOLUTE LYMPH COUNT 0.9 /CUMM (1.2-3.4); ABSOLUTE MONOCYTE COUNT 0.7 /CUMM (0.10-0.60); BASOPHIL % 0.2 % (0.0-2.0); EOSINOPHIL % 3.9 % (0-5); GRANULOCYTE % 73.3 % (42.2-75.2); HEMATOCRIT 33.6 % (42-52); MEAN CORPUSCULAR HGB 29.4 PG (27.0-31.0); MEAN CORPUSCULAR HGB CONC 33.2 G/DL (33.0-37.0); MEAN CORPUSCULAR VOLUME 88.4 FL (80.0-94.0); MEAN PLATELET VOLUME 8.6 FL (7.4-10.4); PLATELET COUNT 202 /CUMM (130-400)
--- NOTE | 2017-12-09 07:55 | PN- Housestaff ---
See Addendum Subjective Follow-up For: Fever of Unknown origin Subjective: Seen and examined. Resting comfortably. Having breakfast. Does not offer any complaints. Daughter is at bedside. Patient did spike overnight up to 101. He underwent MRI which was positive for benign hemangiomas. Not think patients mentation is altered and he is hallucinating. And is not at his baseline Review of Systems Constitutional: Reports: see HPI. Objective Last 24 Hrs of Vital Signs/I&O Vital Signs Date Time Temp Pulse Resp B/P B/P Pulse O2 O2 Flow FiO2 Mean Ox Delivery Rate 12/09 0800 Room Air Room Air 12/09 0701 99.8 94 26 114/64 94 Room Air 12/09 0654 97.8 63 20 116/58 96 Room Air 12/09 0438 101.6 12/08 2222 99.2 97 24 124/76 93 12/08 2104 Room Air 12/08 2030 99.2 12/08 1804 101.5 12/08 1649 101.4 103 140/82 93 12/08 1600 Room Air 12/08 1300 99.7 12/08 1233 99.7 108 19 98/62 Intake & Output 12/09 1600 12/09 0800 12/09 0000 Intake Total 350 180 Output Total Balance 350 180 Intake, IV 50 Intake, Oral 300 180 Number 1 Bowel Movements Patient 144 lb Weight Physical Exam General Appearance: Alert Cardiovascular: Normal S1, Normal S2 Lungs: Clear to Auscultation, Normal Air Movement Abdomen: Normal Bowel Sounds, Soft, No Tenderness Neurological: Normal Speech Current Medications: Current Medications Sig/Edwin Start time Last Medication Dose Route Stop Time Status Admin Acetaminophen 1,000 MG .STK-MED ONE 12/08 1736 DC IV 12/08 1737 Acetaminophen 1,000 MG Q8P PRN 12/07 1000 AC 12/09 IV 0438 Azithromycin 500 MG DAILY 12/07 1035 DC 12/08 PO 0838 Donepezil HCl 10 MG AT BEDTIME 12/05 2100 AC 12/08 PO 2007 Heparin Sodium 5,000 UNIT Q8 12/04 1400 AC 12/09 (Porcine) SC 0554 Potassium Chloride 40 MEQ ONCE ONE 12/09 1030 DC PO 12/09 1031 Quetiapine Fumarate 25 MG QPM 12/04 2100 AC 12/08 PO 2008 Sodium Chloride 1,000 ML Q10H 12/08 1300 DC IV Sodium Chloride 1,000 ML Q10H 12/08 1300 CAN IV 12/08 6539 Last 24 Hrs of Lab/Cas Results Last 24 Hrs of Labs/Mics: Laboratory Tests 12/09/17 0620: Anion Gap 11, Estimated GFR > 60, BUN/Creatinine Ratio 10.0, Magnesium 1.9, CBC w Diff NO MAN DIFF REQ, RBC 3.80 L, MCV 88.4, MCH 29.4, MCHC 33.2, RDW 14.0, MPV 8.6, Gran % 73.3, Lymphocytes % 13.2 L, Monocytes % 9.4 H, Eosinophils % 3.9, Basophils % 0.2, Absolute Granulocytes 5.1, Absolute Lymphocytes 0.9 L, Absolute Monocytes 0.7 H, Absolute Eosinophils 0.3, Absolute Basophils 0 Microbiology 12/08 1600 STOOL: Clostridium difficile Toxin A & B - RECD Assessment/Plan Assessment: The patient is 62-year-old gentleman with past medical history of dementia who was initially being treated for community-acquired pneumonia with IV ceftriaxone and azithromycin. His white count responded well and start trended down however he continues to spike fever. A CT scan was done to rule out complications of pneumonia and was positive for partially occluded small pleural effusion. The effusion was too small to be tapped at this point after talking with IR. IV line was removed from the left side in consideration of phlebitis as a cause of his fever. Patient has been having diarrhea C. difficile was sent which was negative. PCR was also done which was also negative. There were 2 masses seen in the liver on the CT scan reported later by radiology. They were solid in nature and are concerning for malignancy. Patient underwent MRI for further evaluation and at that point we thought that fever might be tumor fever. And he might have metastasis causing diarrhea. Hence antibiotic was discontinued. The MRI was negative for malignancy and was most consistent with benign hemangiomas. At this point it is fever of unknown origin. Patient remains without a white count. His respiratory status is unchanged and he satting in 95% on room air. Does not appear to be in any acute distress. Since daughter is complaining of changing in mentation of note patient has baseline dementia. The next shot will be to pursue LP? To rule out meningitis. Will discuss with attending and infectious disease. Meanwhile we will manage the patient symptomatically and control the fever with IV Tylenol. Patient had hypokalemia today we are going to monitor and replete accordingly it was most likely secondary to ongoing diarrhea Patient remains full code and on DVT prophylaxis Problem List: 1. Dementia 2. Pneumonia 3. Diarrhea Pain Ratin Pain Location: na Pain Goal: Pain 4 or less Pain Plan: prn Tomorrow's Labs & Rationales: cbc bep
[2017-12-09 14:40] VITALS: BP 122/68
--- NOTE | 2017-12-09 15:21 | CT SCAN REPORT ---
EXAMINATION: CT HEAD WITHOUT CONTRAST CLINICAL INFORMATION: Pre-LP evaluation if both eyes. COMPARISON: None TECHNIQUE: Contiguous axial imaging was performed from the skull base to vertex without intravenous administration of contrast. DLP: 602 mGy-cm FINDINGS: There is no evidence of acute intracranial hemorrhage or territorial infarction. No abnormal mass effect or midline shift is seen. Villatoro to white matter differentiation is well preserved. No extra-axial fluid collections are identified. The ventricles are normal in size. There is no abnormal attenuation within the brain parenchyma. The osseous structures and soft tissues are normal. The mastoid air cells and visualized portions of the paranasal sinuses are well aerated. IMPRESSION: No acute intracranial process seen.
[2017-12-09 22:12] VITALS: BP 122/76
[2017-12-10 06:51] VITALS: BP 114/72
[2017-12-10 08:24] LABS: ABSOLUTE BASOPHIL COUNT 0 /CUMM (0.0-0.2); ABSOLUTE EOSINOPHIL COUNT 0.3 /CUMM (0.0-0.7); ABSOLUTE GRANULOCYTE CT 4.8 /CUMM (1.4-6.5); ABSOLUTE LYMPH COUNT 0.9 /CUMM (1.2-3.4); ABSOLUTE MONOCYTE COUNT 0.5 /CUMM (0.10-0.60); BASOPHIL % 0.3 % (0.0-2.0); EOSINOPHIL % 4.6 % (0-5); GRANULOCYTE % 73.6 % (42.2-75.2); HEMATOCRIT 32.7 % (42-52); MEAN CORPUSCULAR HGB 29.4 PG (27.0-31.0); MEAN CORPUSCULAR HGB CONC 33.7 G/DL (33.0-37.0); MEAN CORPUSCULAR VOLUME 87.2 FL (80.0-94.0); PLATELET COUNT 238 /CUMM (130-400); RBC DISTRIBUTION WIDTH 14.3 % (11.5-14.5); RED BLOOD CELL CT 3.75 /CUMM (4.70-6.10); WHITE BLOOD CELL COUNT 6.5 /CUMM (4.8-10.8)
--- NOTE | 2017-12-10 08:26 | PN- Housestaff ---
Flavio WADSWORTH,Levar 12/10/17 0826: Subjective Follow-up For: pna fevers Subjective: Still febrile with a MAXIMUM TEMPERATURE of 101.3 at 10:00 last night. He personally does not endorse any complaints such as chills, shortness of breath, chest pain, palpitation, increased malaise, abdominal pain or dysuria. Review of Systems Constitutional: Reports: see HPI. Objective Last 24 Hrs of Vital Signs/I&O Vital Signs Date Time Temp Pulse Resp B/P B/P Pulse O2 O2 Flow FiO2 Mean Ox Delivery Rate 12/10 0800 Room Air Room Air 12/10 0651 98.3 84 20 114/72 96 Room Air 12/09 2212 101.3 101 20 122/76 94 12/09 2209 101.3 12/09 2133 Room Air 12/09 1440 97.6 93 20 122/68 96 Room Air Intake & Output 12/10 1600 12/10 0800 12/10 0000 Intake Total 300 180 Output Total Balance 300 180 Intake, Oral 300 180 Patient 67.132 kg Weight Physical Exam General Appearance: Alert, Oriented X3, Cooperative Cardiovascular: Regular Rate, Normal S1, Normal S2 Lungs: Clear to Auscultation, Normal Air Movement Abdomen: Normal Bowel Sounds, Soft, No Tenderness, No Masses Extremities: No Clubbing, No Edema, Normal Pulses Assessment/Plan Assessment: This is a 62-year-old gentleman with past medical history of Alzheimer and a history of remote alcohol and drug abuse presented to [facility] with complaints of increased confusion, diarrhea and generalized malaise. Was initially treated for possible community-acquired pneumonia with ceftriaxone and azithromycin given the CT findings of opacity especially on the right lobe. He continued to have persistent fevers, a CT was obtained to further assess any infectious etiology, a small insignificant pleural effusion was noted which was not deemed not appropriate for thoracentesis. His UA was unremarkable, strep and Legionella was also negative. ID consult was obtained and those initial suggestion that history is of fever before upper extremity phlebitis. Repeated C. difficile including PCR was sent out with unremarkable results. There was incidental findings of hemangiomas which was further evaluated by an MRI that showed liver and thoracic hemangiomas. To be noted that patient was a symptomatic and never complained on any back pain or any focal neurological deficit. Patient continues to have persistent fevers. Impression * Fevers of unknown origin * Chronic diarrhea * Acute on chronic dementia Plan We'll continue to treat symptomatic fevers with IV Tylenol. Meningitis was considered in the differential, however patient does not show any clinical signs suggestive of this, as he does not have any neck rigidity, focal neurological deficits,, and Kernig and Brudzinski signs are all negative, his white count is also within normal limits. Presence of vertebral hemangioma at the T10 also makes us cautious in pursuing lumbar puncture unless there is a high pretest probability (even though will typically advance the needle at levels of L3-L5). Continue to follow up ID recommendations on the management of this fever of unknown origin, there has been suggestion of initiating a fluoroquinolone if patient develops further fevers. We'll await for patient to be afebrile for more than 24 hours before we anticipate discharge to [facility]. His diarrhea appears chronic and of normal infectious etiology would therefore symptomatically managed. Problem List: 1. Pneumonia Pain Ratin Pain Location: none Pain Goal: Remain pain free Pain Plan: per pathway Tomorrow's Labs & Rationales: cbc bep Michael Archuleta MD 12/10/17 1523: Attending MD Review Statement Attending Statement Attending MD Statement: examined this patient, discuss w/resident/PA/LOGISTICS SUPPORT, agreed w/resident/PA/LOGISTICS SUPPORT, reviewed EMR data (avail) Attending Assessment/Plan: Continues to spike fevers, 101.3 overnight. Brown thick sputum today. Mildly confused, no other complaints. Cultures continue to be negative, WBC still 6. Plan - Repeat CXR - Repeat cultures if fever spike - IR consult for LP tomorrow - Would start Moxifloxacin after LP tomorrow if continues to be febrile - Follow ID recommendations - COntinue home medications - DVT PPx
--- NOTE | 2017-12-10 08:43 | PN- Infect Dx ---
Subjective Subjective: T-max 101.3. He offers no complaints but is reportedly coughing periodically. He had one loose bowel movement recorded yesterday. Objective Last 24 Hrs of Vital Signs/I&O Vital Signs Date Time Temp Pulse Resp B/P B/P Pulse O2 O2 Flow FiO2 Mean Ox Delivery Rate 12/10 0800 Room Air Room Air 12/10 0651 98.3 84 20 114/72 96 Room Air 12/09 2212 101.3 101 20 122/76 94 12/09 2209 101.3 12/09 2133 Room Air 12/09 1440 97.6 93 20 122/68 96 Room Air Intake & Output 12/10 1600 12/10 0800 12/10 0000 Intake Total 300 180 Output Total Balance 300 180 Intake, Oral 300 180 Patient 148 lb Weight Physical Exam Other Physical Findings: He is awake and alert, appearing comfortable and in no acute distress Lungs scattered rhonchi bilaterally Heart regular rhythm with no murmur Abdomen is soft, nontender with positive bowel sounds Back no CVA tenderness Extremities no cyanosis, clubbing or edema Results Last 24 Hours of Lab Results: Laboratory Tests 12/10 07 Chemistry Sodium Pending Potassium Pending Chloride Pending Carbon Dioxide Pending Anion Gap Pending BUN Pending Creatinine Pending BUN/Creatinine Ratio Pending Hematology CBC w Diff Pending WBC Pending RBC Pending Hgb Pending Hct Pending MCV Pending MCH Pending MCHC Pending RDW Pending Plt Count Pending MPV Pending Last 24 Hours of Cas Results: Sputum culture December 08 mixed salma Stool C. difficile December 08 negative Recent Imaging Studies: CT of the head December 09 no acute process MRI of the abdomen December 08 reveals 2 masses in the liver suggestive of hemangiomas; moderate degenerative disc disease in the lower thoracic spine with a small vertebral hemangioma in the T10 vertebral body Assessment/Plan ID Impression: Recurrent fevers, now off antibiotics after 5 days of treatment for a multilobar pneumonia, felt to be possibly atypical in origin, after presenting with no pulmonary symptoms, though he does now reportedly have an occasional cough. His white blood cell count did normalize on antibiotics, suggesting a response to treatment, but he has no other obvious source of infection and his recent MRI did still show extensive consolidation in the right middle lobe. The liver lesions apparently represent hemangiomas and, therefore, are unlikely related to his fevers. His diarrhea is apparently a chronic problem, of unclear etiology, with his C. difficile toxin negative 2 and the PCR also negative. He does not appear to have any evidence for meningitis, and the lumbar puncture was deferred. Suggestion: 1. Continue to monitor temperatures and white blood cell count 2. If his fevers recur would repeat blood cultures and chest x-ray 3. Continue to follow off antibiotics pending above but, if fevers recur, will consider empiric treatment with Moxifloxacin 400 mg p.o. every 24 hours
[2017-12-10 14:35] VITALS: BP 116/70
--- NOTE | 2017-12-10 18:21 | RADIOLOGY REPORT ---
EXAMINATION: XR PORTABLE CHEST CLINICAL INFORMATION: Fever. COMPARISON: CT chest 12/06/2017 TECHNIQUE: Portable frontal view of the chest was obtained. FINDINGS: There is diffuse airspace consolidation right middle lobe. There is loss of right lung volume suggestive of atelectasis. The heart size and pulmonary vascularity is normal. No gross bony abnormality seen. IMPRESSION: Right middle lobe pneumonia is stable to CT chest exams. However there is mild loss of right lung volume compared to 12/04/2017 chest x-ray. Rest of lungs are clear.
[2017-12-10 22:00] VITALS: BP 110/76
[2017-12-11 06:44] VITALS: BP 100/70
--- NOTE | 2017-12-11 07:42 | PN- Housestaff ---
Karlos WADSWORTH,[facility] 12/11/17 0742: Subjective Follow-up For: Fever pneumonia Subjective: Seen and examined. Resting comfortably no acute events. Did not spike a high- grade fever yesterday. Review of Systems Constitutional: Reports: see HPI. Objective Last 24 Hrs of Vital Signs/I&O Vital Signs Date Time Temp Pulse Resp B/P B/P Pulse O2 O2 Flow FiO2 Mean Ox Delivery Rate 12/11 0644 99.3 92 20 100/70 94 Room Air 12/11 0000 Room Air 12/10 2200 99.4 90 26 110/76 96 12/10 1435 99.0 90 20 116/70 99 Intake & Output 12/11 1600 12/11 0800 12/11 0000 Intake Total 220 600 Output Total 400 Balance 220 200 Intake, Oral 220 600 Output, Urine 400 Patient 143 lb Weight Physical Exam General Appearance: Alert Cardiovascular: Normal S1, Normal S2 Lungs: Clear to Auscultation Abdomen: Soft Neurological: Normal Speech Current Medications: Current Medications Sig/Edwin Start time Last Medication Dose Route Stop Time Status Admin Acetaminophen 1,000 MG Q8P PRN 12/07 1000 AC 12/09 IV 2209 Donepezil HCl 10 MG AT BEDTIME 12/05 2100 AC 12/10 PO 211 Heparin Sodium 5,000 UNIT Q8 12/04 1400 AC 12/10 (Porcine) SC 2115 Patient Medication 1 ED ONE ONE 12/11 1000 VT Teaching ED 12/11 1001 Quetiapine Fumarate 25 MG QPM 12/04 2100 AC 12/10 PO 2115 Last 24 Hrs of Lab/Cas Results Last 24 Hrs of Labs/Mics: Laboratory Tests 12/11/17 0615: Anion Gap 12, Estimated GFR > 60, BUN/Creatinine Ratio 17.1, CBC w Diff NO MAN DIFF REQ, RBC 3.78 L, MCV 88.6, MCH 29.5, MCHC 33.3, RDW 14.5, MPV 8.2, Gran % 74.8, Lymphocytes % 16.3 L, Monocytes % 6.1, Eosinophils % 2.4, Basophils % 0.4 , Absolute Granulocytes 5.8, Absolute Lymphocytes 1.3, Absolute Monocytes 0.5, Absolute Eosinophils 0.2, Absolute Basophils 0 Assessment/Plan Assessment: The patient is 62-year-old gentleman with past medical history of dementia who was initially being treated for community-acquired pneumonia with IV ceftriaxone and azithromycin. His white count responded well and start trended down however he continues to spike fever. A CT scan was done to rule out complications of pneumonia and was positive for partially occluded small pleural effusion. The effusion was too small to be tapped at this point after talking with IR. IV line was removed from the left side in consideration of phlebitis as a cause of his fever. Patient has been having diarrhea C. difficile was sent which was negative. PCR was also done which was also negative. There were 2 masses seen in the liver on the CT scan reported later by radiology. They were solid in nature and are concerning for malignancy. Patient underwent MRI for further evaluation and at that point we thought that fever might be tumor fever. And he might have metastasis causing diarrhea. Hence antibiotic was discontinued. The MRI was negative for malignancy and was most consistent with benign hemangiomas in the liver and one at T10 level. There was consideration about LP to rule out meningitis. However patient does not have any neck rigidity, focal neurological deficits,, and Kernig and Brudzinski signs are all negative, his white count is also within normal limits. So we held off. He did not have loose stool overnight. He has not spiked any high-grade fever overnight as well. His white count is within normal limits. He has completed 5 day treatment for multilobar pneumonia. Repeat chest x-ray was positive for diffuse airspace consolidation in right middle lobe. He will require an outpatient CT scan for follow-up We will continue to monitor patient off antibiotics If he remains afebrile for next 24 hours we will anticipate discharge. Patient remains full code and on DVT prophylaxis Problem List: 1. Dementia 2. Diarrhea 3. Pneumonia Pain Ratin Pain Location: na Pain Goal: Pain 4 or less Pain Plan: prn Tomorrow's Labs & Rationales: cbc bep Dasia Vidal 12/11/17 1214: Attending MD Review Statement Attending Statement Attending MD Statement: examined this patient, discuss w/resident/PA/[employer]ER, agreed w/resident/PA/[employer]SI[employer]ER, reviewed EMR data (avail), discussed with nursing, discussed with case mgmt Attending Assessment/Plan: Afebrile now. if stays afebrile will plan for dc in am. Pt has dementia and is unable to answer most of the questions.
[2017-12-11 08:01] LABS: ABSOLUTE BASOPHIL COUNT 0 /CUMM (0.0-0.2); ABSOLUTE EOSINOPHIL COUNT 0.2 /CUMM (0.0-0.7); ABSOLUTE GRANULOCYTE CT 5.8 /CUMM (1.4-6.5); ABSOLUTE LYMPH COUNT 1.3 /CUMM (1.2-3.4); ABSOLUTE MONOCYTE COUNT 0.5 /CUMM (0.10-0.60); BASOPHIL % 0.4 % (0.0-2.0); EOSINOPHIL % 2.4 % (0-5); GRANULOCYTE % 74.8 % (42.2-75.2); HEMATOCRIT 33.5 % (42-52); MEAN CORPUSCULAR HGB 29.5 PG (27.0-31.0); MEAN CORPUSCULAR HGB CONC 33.3 G/DL (33.0-37.0); MEAN CORPUSCULAR VOLUME 88.6 FL (80.0-94.0); MEAN PLATELET VOLUME 8.2 FL (7.4-10.4); PLATELET COUNT 288 /CUMM (130-400); RBC DISTRIBUTION WIDTH 14.5 % (11.5-14.5); RED BLOOD CELL CT 3.78 /CUMM (4.70-6.10); WHITE BLOOD CELL COUNT 7.8 /CUMM (4.8-10.8)
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
--- NOTE | 2017-12-11 11:18 | PN- Infect Dx ---
Subjective Subjective: Afebrile without complaints. He has had no loose stools overnight but did have 10 stools recorded yesterday. Objective Last 24 Hrs of Vital Signs/I&O Vital Signs Date Time Temp Pulse Resp B/P B/P Pulse O2 O2 Flow FiO2 Mean Ox Delivery Rate 12/11 0644 99.3 92 20 100/70 94 Room Air 12/11 0000 Room Air 12/10 2200 99.4 90 26 110/76 96 12/10 1435 99.0 90 20 116/70 99 Intake & Output 12/11 1600 12/11 0800 12/11 0000 Intake Total 220 600 Output Total 400 Balance 220 200 Intake, Oral 220 600 Output, Urine 400 Patient 143 lb Weight Physical Exam Other Physical Findings: He appears comfortable in no acute distress Lungs are clear Heart regular rhythm with no murmur Abdomen is soft, nontender with positive bowel sounds Results Last 24 Hours of Lab Results: Laboratory Tests 12/11 0615 Chemistry Sodium (137 - 145 mmol/L) 138 Potassium (3.5 - 5.1 mmol/L) 4.2 Chloride (98 - 107 mmol/L) 101 Carbon Dioxide (22 - 30 mmol/L) 25 Anion Gap (5 - 16) 12 BUN (9 - 20 mg/dL) 12 Creatinine (0.7 - 1.2 mg/dL) 0.7 Estimated GFR (>60 ml/min) > 60 BUN/Creatinine Ratio (7 - 25 %) 17.1 Hematology CBC w Diff NO MAN DIFF REQ WBC (4.8 - 10.8 /CUMM) 7.8 RBC (4.70 - 6.10 /CUMM) 3.78 L Hgb (14.0 - 18.0 G/DL) 11.1 L Hct (42 - 52 %) 33.5 L MCV (80.0 - 94.0 FL) 88.6 MCH (27.0 - 31.0 PG) 29.5 MCHC (33.0 - 37.0 G/DL) 33.3 RDW (11.5 - 14.5 %) 14.5 Plt Count (130 - 400 /CUMM) 288 MPV (7.4 - 10.4 FL) 8.2 Gran % (42.2 - 75.2 %) 74.8 Lymphocytes % (20.5 - 51.1 %) 16.3 L Monocytes % (1.7 - 9.3 %) 6.1 Eosinophils % (0 - 5 %) 2.4 Basophils % (0.0 - 2.0 %) 0.4 Absolute Granulocytes (1.4 - 6.5 /CUMM) 5.8 Absolute Lymphocytes (1.2 - 3.4 /CUMM) 1.3 Absolute Monocytes (0.10 - 0.60 /CUMM) 0.5 Absolute Eosinophils (0.0 - 0.7 /CUMM) 0.2 Absolute Basophils (0.0 - 0.2 /CUMM) 0 Last 24 Hours of Cas Results: No recent cultures Recent Imaging Studies: Chest x-ray December 10 reveals diffuse airspace consolidation in the right middle lobe Assessment/Plan ID Impression: Remains stable, with no further fevers and with white blood cell count remaining normal, off antibiotics for the past 3 days after 5 days of treatment for a multilobar pneumonia, with his repeat chest x-ray today still revealing diffuse airspace consolidation in the right middle lobe. Suggestion: 1. Will need a follow-up CT of the chest as an outpatient 2. Continue to follow off antibiotics
[2017-12-11 14:53] VITALS: BP 104/70
[2017-12-12 06:39] VITALS: BP 92/66
--- NOTE | 2017-12-12 07:04 | PN- Housestaff ---
See Addendum Subjective Follow-up For: Community acquired pneumonia Subjective: Seen and examined. Resting comfortably. Afebrile without a white count. Stable to be discharged home today Review of Systems Constitutional: Reports: see HPI. Objective Last 24 Hrs of Vital Signs/I&O Vital Signs Date Time Temp Pulse Resp B/P B/P Pulse O2 O2 Flow FiO2 Mean Ox Delivery Rate 12/12 0639 98.8 90 18 92/66 94 Room Air 12/11 2102 97 Room Air Room Air 12/11 1453 99.2 91 18 104/70 96 Room Air 12/11 1448 Room Air Room Air Intake & Output 12/12 1600 12/12 0800 12/12 0000 Intake Total 400 400 Output Total Balance 400 400 Intake, Oral 400 400 Number 2 Bowel Movements Patient 144 lb Weight Weight Bed scale Measurement Method Physical Exam General Appearance: Alert Cardiovascular: Normal S1, Normal S2 Lungs: Clear to Auscultation Abdomen: Normal Bowel Sounds, Soft Extremities: No Edema Current Medications: Current Medications Sig/Edwin Start time Last Medication Dose Route Stop Time Status Admin Acetaminophen 1,000 MG Q8P PRN 12/07 1000 AC 12/09 IV 2209 Donepezil HCl 10 MG AT BEDTIME 12/05 2100 AC 12/11 PO 2105 Heparin Sodium 5,000 UNIT Q8 12/04 1400 AC 12/11 (Porcine) SC 2106 Patient Medication 1 ED ONE ONE 12/11 1000 DC Teaching ED 12/11 1001 Quetiapine Fumarate 25 MG QPM 12/04 2100 AC 12/11 PO 2105 Assessment/Plan Assessment: Patient is 62-year-old gentleman who was treated and evaluated for community- acquired pneumonia. He has completed 5 days of antibiotic treatment. Patient's course was complicated by continues spiking a fever. For which the extensive workup was done. CT scan was positive for a small loculated pleural effusion which was not tap -able. There were 2 hemangiomas found on liver and and one in T10 vertebral body. He also underwent CT scan of the head when daughter reported change in patient's behavior. Which came out to be negative. As per daughter patient has returned to his baseline. Most likely the change in patient's mentation was secondary to worsening of dementia and new environment. His diarrhea has resolved we have checked C. difficile toxin which was negative twice and PCR also remains negative. Patient has remained afebrile for the past 24 hours. And is cleared to be discharged to dementia unit. Problem List: 1. Fever 2. Dementia 3. Pneumonia 4. Diarrhea Pain Ratin Pain Location: na Pain Goal: Pain 4 or less Pain Plan: prn Tomorrow's Labs & Rationales: none dc today
--- NOTE | 2017-12-12 08:24 | Patient Discharge Instructions ---
Discharge Instructions General Discharge Information You were seen/treated for: Community-acquired pneumonia Special Instructions: -Please follow-up with your primary care doctor within 1 week of the charge -Please follow-up with [facility] after discharge Diet Recommended Diet: Regular Activity Activity Self Limited: Yes Acute Coronary Syndrome Inclusion Criteria At DC or during hospital stay patient has or had the following: ACS DIAGNOSIS No Discharge Core Measures Meds if any: Prescribed or Continued at Discharge Meds if any: NOT Prescribed or Continued at Discharge Congestive Heart Failure Inclusion Criteria At DC or during hospital stay patient has or had the following: CHF DIAGNOSIS No Discharge Core Measures Meds if any: Prescribed or Continued at Discharge Meds if any: NOT Prescribed or Continued at Discharge Cerebrovascular accident Inclusion Criteria At DC or during hospital stay patient has or had the following: CVA/TIA Diagnosis No Discharge Core Measures Meds if any: Prescribed or Continued at Discharge Meds if any: NOT Prescribed or Continued at Discharge Venous thromboembolism Inclusion Criteria VTE Diagnosis No VTE Type NONE VTE Confirmed by (Test) NONE Discharge Core Measures - Per Current guidelines, there needs to be overlap - treatment for the first 5 days of Warfarin therapy. - If discharged on Warfarin prior to 5 days of - overlap therapy, the patient will need to be - assessed for post discharge needs including - *Post discharge parental anticoagulation - *Warfarin and/or parental anticoagulation education - *Follow up date to check INR post discharge At least 5 days overlap therapy as Inpatient No Meds if any: Prescribed or Continued at Discharge Note: Overlap Therapy is Warfarin and Anticoagulant Meds if any: NOT Prescribed or Continued at Discharge Meds if any: NOT Prescribed or Continued at Discharge
[2017-12-12 11:57] VITALS: BP 102/66; BP 92/66
[2017-12-12 11:58] VITALS: BP 92/66
== END 2017-12-12 13:08 | DRG 139 ==
LOC: ERH 01:14 → ERHI 07:50 → 1NO 07:50 → ENRESERV 08:23 → ENTRNSPT 09:42 → EDTRNSPTSTS 10:14 → EDTRNSPT 10:14 → 1NO 10:25 → CMPTRNSPT 10:40 → 1NO 12-05 11:07 → ENPENDDIS 12-12 11:53 → 1NO 12-12 13:08
PROVIDERS: Internal Medicine; Internal Medicine Interventional Cardiology; Pediatrics; Student in an Organized Health Care Education/Training Program
DX: J18.9 Pneumonia, unspecified organism (principal); G30.9 Alzheimer's disease, unspecified; F02.80 Dementia in other diseases classified elsewhere, unspecified severity, without behavioral disturbance, psychotic disturbance, mood disturbance, and anxiety; G92 Toxic encephalopathy; D18.03 Hemangioma of intra-abdominal structures; D18.09 Hemangioma of other sites; R19.7 Diarrhea, unspecified; R26.81 Unsteadiness on feet; R00.0 Tachycardia, unspecified; R32 Unspecified urinary incontinence; B18.2 Chronic viral hepatitis C; E55.9 Vitamin D deficiency, unspecified; F05 Delirium due to known physiological condition
CPT/HCPCS: 1NP; 75660; 87493; 36415; 36592; 71045; 74176; 81001; 82436; 87015; 87040; 87045; 87070; 87086; 87449; 87450; 87899; 87899-59; 93005; 93010; 96374; 96375; 97112-GO; 97116-GO; 97116-GP; 97161-GP; A9579; J0131; J0456; J0696; J1644; J1885; J7040; J7042